=== PATIENT | male | born 1985 | race Caucasian/White ===

== ENCOUNTER 2017-05-28 18:49 | Emergency (ER) | payer OTHER | END 2017-05-28 20:54 | disposition home or self-care (01) | LOC: ER1 18:49 | DX: S83.412A Sprain of medial collateral ligament of left knee, initial encounter (principal); W51.XXXA Accidental striking against or bumped into by another person, initial encounter; Y93.66 Activity, soccer; Y92.219 Unspecified school as the place of occurrence of the external cause | CPT/HCPCS: 29515; 73564; 73590; 73610; 99283 ==

== ENCOUNTER → 2021-01-19 | Day surgery (SDC) | payer BC ==
[~2021-01-19] MED LIST: FLONASE SPRAY; MEN'S MULTIVIT1 EACH PO; VITAMIN C250 MG PO; ZYRTEC10 MG PO
== END | disposition home or self-care (01) ==
LOC: OR 07:07
DX: S62.025A Nondisplaced fracture of middle third of navicular [scaphoid] bone of left wrist, initial encounter for closed fracture (principal); Z86.16 Personal history of COVID-19; Z79.899 Other long term (current) drug therapy; X58.XXXA Exposure to other specified factors, initial encounter; Y93.66 Activity, soccer
CPT/HCPCS: 73130; 76000; C1713; J0690; J1100; J1885; J2001; J2250; J2405; J2704; J2710; J3010; J7120